=== PATIENT | female | born 1995 | race Caucasian/White ===

== ENCOUNTER 2016-02-20 13:09 | Emergency (ER) | payer BC ==
[~2016-02-20] VITALS: Ht 165.1 cm; Wt 57.5 kg
[2016-02-20 13:18] VITALS: BP 134/82; PULSE 90; TEMP 36.6; O2SAT 97; Ht 165.1 cm; Wt 57.5 kg
[2016-02-20] MEDS ORDERED: LEVO1TAB19 PO (13:31)
--- NOTE | 2016-02-20 14:11 | DIAGNOSTIC IMAGING REPORT ---
RIGHT TIBIA AND FIBULA 2 VIEWS CLINICAL HISTORY: Right leg pain. FINDINGS: AP and lateral views of the right tibia and fibula are obtained. No prior studies are available for comparison at the time of dictation. The skeletal structures are well mineralized. No fracture is seen. The knee and ankle joints are grossly maintained. The overlying soft tissues are within normal limits. IMPRESSION: Unremarkable radiographic assessment of the right tibia and fibula. Electronically signed by: Gilberto Oshea M.D. 02/20/2016 2:10 PM Dictated Date/Time: 02/20/2016 2:09 PM
--- NOTE | 2016-02-20 14:50 | DIAGNOSTIC IMAGING REPORT ---
ULTRASOUND RIGHT LOWER EXTREMITY VENOUS CLINICAL HISTORY: Right leg pain. COMPARISON STUDY: No priors. TECHNIQUE: Real-time, grayscale, and color Doppler sonography of the deep veins of the right lower extremity was performed from the inguinal crease to the calf. Compression and augmentation were utilized. FINDINGS: There is no sonographic evidence of deep venous thrombosis identified in the right lower extremity. The common femoral, superficial femoral, and popliteal veins are patent and normally compressible. The greater saphenous vein and the profunda femoris vein at the junction with the common femoral vein are clear. The visualized calf veins are patent. IMPRESSION: There is no sonographic evidence of deep venous thrombosis identified in the right lower extremity. Electronically signed by: Gilberto Oshea M.D. 02/20/2016 2:48 PM Dictated Date/Time: 02/20/2016 2:48 PM
[2016-02-20] MEDS ORDERED: CEPH500C2 PO (15:01)
--- NOTE | 2016-02-21 19:49 | EMERGENCY ROOM VISIT NOTE ---
ED Visit Note First contact with patient: 13:19 Chief Complaint: Right lower leg pain. History of Present Illness: Ms. Carter is a 20-year-old white female who ambulates into the ED accompanied by multiple free metanephrines complaining of right lower leg pain. Patient reports her ongoing pain has been awakened length. She describes most of her discomfort in the gastrocnemius muscle. She describes it as basically an achy sensation with throbbing. She rates her discomfort 5/10. Her pain worsens with ambulation and palpation. She has not identified any alleviating factors related to the pain. She reports she's been using ibuprofen without relief of her discomfort. Additionally she reports that she was recently started on control approximately 1.5 months ago but she does not smoke and within the last week she had a flight to and from [place]. She denies any recent trauma, previous significant injuries or surgeries, fevers , chills, sweats, skin eruptions, respiratory tract symptoms, cough, wheezing, shortness of breath, palpitations, orthopnea, dependent edema, claudication, cramps, previous clots, abdominal pain, nausea, vomiting. Review of Systems: As noted above in history of present illness. 8 body systems were reviewed and found to be negative as noted above. Past Medical History: Unspecified urinary problems, status post appendectomy. Current Medications: control. Allergies to Medications: Penicillin. Social History: Patient is currently employed; she feels safe in her home environment; she denies tobacco use; she admits to alcohol use. Physical Examination: Vital Signs: Date Time Temp Pulse Resp B/P Pulse Ox O2 Delivery O2 Flow Rate FiO2 02/20/16 13:18 36.6 90 18 134/82 97 Room Air GENERAL: 20-year-old female in mild distress due to pain, nontoxic-appearing, afebrile and hemodynamically stable. NEUROLOGICAL: Awake, alert and oriented to person, place and time. Answering questions appropriately and following commands. Normal gait. Good hand eye coordination. No focal motor sensory deficits. SKIN: Warm, dry and pink. No soft tissue eruptions or trauma noted. HEENT: Atraumatic and normocephalic. BACK: No tenderness over the bony thoracic and lumbar spine. THORAX: Lungs sounds are clear to auscultation and equal bilaterally with symmetrical chest wall. No wheezing, rales or rhonchi. No crepitus, tenderness , subcutaneous air or deformities noted. HEART: Regular rate and rhythm. No gallops, rubs or murmurs are appreciated. ABDOMEN: Flat, soft and nontender. Positive bowel sounds in all quadrants. No guarding, rigidity or organomegaly. RIGHT LOWER EXTREMITY: No calf tenderness or cords. Right lower leg: Patient does have moderate tenderness over the posterior calf. I do not appreciate any calf swelling. She also has mild tenderness with compression of the calf. Full range of motion of the knee and ankle. Throughout the foot the skin was warm and pink and capillary refill is brisk. ED Course: Patient is assessed as noted above. Patient was offered pain medications and refused. Right Tibia/Fibula X-Rays: Were read by myself and shows no acute fractures or soft tissue swelling. Right Lower Leg Doppler Venous Ultrasound: Was reviewed by myself and read by the radiologist showing no evidence of deep vein thrombus. Patient was offered crutches and refused. Patient was educated about tonight's findings and instructed on her treatment plan; she verbalizes understanding and agreement with this plan. Clinical Impression: Right lower leg pain. Disposition: Patient discharged home in stable condition accompanied by female friends; prior to departure she was reassessed and subjectively reported she was pain-free Plan: Patient was encouraged to alternate ibuprofen and acetaminophen as needed for pain every 3 hours. Patient was encouraged to follow-up at [facility] if no better in 7-10 days. Patient was encouraged return the ED for worsening/uncontrolled pain, swelling, redness, fevers, chest pain, shortness of breath or any new/concerning symptoms.
== END 2016-02-20 15:15 | disposition home or self-care (01) ==
LOC: C.EDB 13:10 → C.EDD 15:15
DX: M79.661 Pain in right lower leg (principal); Z90.89 Acquired absence of other organs